=== PATIENT | female | born 1980 | race Two or more races ===

== ENCOUNTER 2018-12-05 20:49 | Emergency (ER) | payer SELFPAY ==
[~2018-12-05] VITALS: Ht 160 cm; Wt 61.7 kg
--- NOTE | 2018-12-05 21:20 | NUR ---
PRESENTED TO THE ER TO BE EVALUATED S/P FALL , 20 WKS . NO KO. NO HEAD INJURY. NO ALOC, NO AMS. W/ SMAL ABRASION ON L KNEE AND L HAND
[2018-12-05] MEDS ORDERED: BACITRACIN ZINC OINT (15 GM) 15 GM TUBE TP SCH (21:30)
--- NOTE | 2018-12-05 22:22 | NUR ---
Patient discharged to home in stable condition. Written and verbal after care instructions given. Patient verbalizes understanding of instruction.
[2018-12-05 22:59] VITALS: BP 119/70
== END 2018-12-05 22:22 | disposition home or self-care (01) ==
LOC: ER 20:55
DX: O9A.212 Injury, poisoning and certain other consequences of external causes complicating pregnancy, second trimester (principal); S80.02XA Contusion of left knee, initial encounter; S60.512A Abrasion of left hand, initial encounter; Z3A.20 20 weeks gestation of pregnancy; W18.39XA Other fall on same level, initial encounter; Y93.89 Activity, other specified; Y92.89 Other specified places as the place of occurrence of the external cause; Y99.8 Other external cause status
CPT/HCPCS: 76805-TC